=== PATIENT | female | born 1975 | race Caucasian/White ===

== ENCOUNTER 2016-09-19 09:22 | Inpatient (IN) ==
[2016-09-19] MEDS ORDERED: ZOFRAN IV ONE (09:36)
[2016-09-19] MEDS ORDERED: NS 1,000 ML IV ONE (09:36)
[2016-09-19] MEDS ORDERED: MORPHINE IV ONE (09:36)
[2016-09-19 10:15] LABS: URINE CULTURE NEEDED? NO; URINE MICRO REVIEW NEEDED? NO; URINE SOURCE CLEAN CATCH
[2016-09-19 10:25] LABS: BILIRUBIN URINE NEGATIVE (NEGATIVE); BLOOD URINE MODERATE (NEGATIVE); COLOR YELLOW; GLUCOSE URINE NEGATIVE (NEGATIVE); LEUKOCYTES URINE NEGATIVE (NEGATIVE); NITRITE URINE NEGATIVE (NEGATIVE); PH URINE 5.5; PROTEIN URINE NEGATIVE (NEGATIVE); TURBIDITY URINE CLEAR (CLEAR); UROBILINOGEN URINE NORMAL (NORMAL)
[2016-09-19 10:27] LABS: UR EPITHELIAL CELLS <10 /HPF (<10); URINE BACTERIA 1+ /HPF; URINE WBC <10 /HPF (<10)
[2016-09-19 10:31] LABS: PROTIME 10.5 Seconds (9.2-11.7); PTT 26.2 Seconds (22.0-36.0)
[2016-09-19 10:36] LABS: BASO% 0.1 % (0.0-0.8); EOS# 0.03 X1000 (0.0-0.7); EOS% 0.2 % (0.0-10.0); HEMATOCRIT 35.3 % (37.0-47.0); HEMOGLOBIN 11.6 g/dL (12.0-16.0); IMM GRAN# 0.03 X1000 (0.0-0.04); IMM GRAN% 0.2 % (0.0-0.5); LYMPH# 1.18 X1000 (1.2-3.4); LYMPH% 8.1 % (20.5-51.1); MCH 29.5 PG (27-31); MCHC 32.9 g/dL (33-37); MCV 89.8 FL (81-99); MONO# 0.86 X1000 (0.11-0.59); MONO% 5.9 % (1.7-9.3); MPV 9.5 FL (7.4-10.4); NEUT% 85.5 % (42.2-75.2); PLT 293 X1000 (130-400); RBC 3.93 XMIL (4.2-5.4)
[2016-09-19 10:41] LABS: AGAP 13; ALBUMIN 4.9 g/dL (3.5-5.0); ALKALINE PHOSPHATASE 69 U/L (32-104); BUN 9 mg/dL (8-22); CALCIUM 9.8 mg/dL (8.8-10.2); CHLORIDE 102 mmol/L (98-107); COSMO 275; GOT 14 U/L (10-30); GPT 11 U/L (10-36); LIPASE 26 U/L (13-60); POTASSIUM 3.9 mmol/L (3.5-5.1); SODIUM 138 mmol/L (136-145); TCO2 23 mmol/L (25-35); TOTAL BILIRUBIN 0.58 mg/dL (0.20-1.00); TOTAL PROTEIN 7.4 g/dL (6.3-8.3)
[2016-09-19 11:14] LABS: MANUAL DIFF NEEDED? NO
--- NOTE | 2016-09-19 11:16 | Diag Imaging Result Doc PS360 ---
EXAM: CT ABDOMEN AND PELVIS WITH CONTRAST HISTORY: Right lower quadrant pain, leukocytosis, umbilical pain TECHNIQUE: CT abdomen and pelvis with contrast. Dose reduction protocol. COMPARISON: None. FINDINGS: Normal gallbladder, spleen, pancreas, and adrenal glands. No focal hepatic abnormality. Questionable mild fatty infiltration. Normal enhancement of the kidneys. No hydronephrosis. Normal aorta. No bowel obstruction. No inflammation about the cecum. No abscess. The urinary bladder is distended and appears normal. There is a contraceptive device in good position within the uterus. A 4.1 cm cyst arises from the left ovary. No free fluid within the pelvis. There are small scattered mesenteric nodes. IMPRESSION: There is a 4.1 cm left ovarian cyst. Electronically signed by Pato Cherry 09/19/2016 11:12 AM
[2016-09-19] MEDS ORDERED: ZOSYN 3.375 GM/NS 3.375 GM/50 ML IVPB IV ONE (12:02)
[2016-09-19] MEDS ORDERED: NS 1,000 ML IV SCH (12:02)
[2016-09-19] MEDS ORDERED: ZOFRAN IV PRN (12:02)
--- NOTE | 2016-09-19 13:18 | PROVIDER DOCUMENTATION ---
This chart was entered by Coty Dahl Scribe, acting as scribe for Jose Gloria PA. HPI-Abdominal Pain/GI Problem - General Chief Complaint: Abdominal Pain Stated Complaint: ABD PAIN Time Seen by Provider: 09/19/16 09:30 Source: patient Allergies/Adverse Reactions: Patient Allergies Allergy/AdvReac Type Severity Reaction Status Date / Time Sulfa (Sulfonamide Allergy HIVES Verified 09/19/16 10:59 Antibiotics) Home Medications: Home Medication List Medication Instructions Recorded Confirmed Last Taken Type Sumatriptan [Imitrex] 50 mg PO PRN PRN 07/30/16 07/30/16 08/22/16 History - History of Present Illness-ABD Nature of Presenting Problems: Pt is a 41 year old female who came to the ED with a cc of umbilical pain and RLQ pain starting at 3am this morning. Pt reports she was nauseous from the pain but did not vomit. Abdominal Pain Onset Location: reports: other (umbilical) Pain Radiation: reports: RLQ Quality of Pain: reports: sharp Onset/Duration: reports: this morning Timing: reports: still present Activities at Onset: reports: none Modifying Factors: improves with: nothing Associated Symptoms: reports: nausea. denies: vomiting Last BM: unsure Dark Stools Present?: reports: none noticed Rectal Bleeding: reports: none Rectal Pain: reports: none Bruising or Bleeding Gums?: No Similar Symptoms Previously?: No Recently seen or treated by another doctor?: No Review of Systems - Adult - REVIEW OF SYSTEMS - ADULT Constitutional: denies: chills, fever Eyes: reports: no symptoms reported Ears, Nose, Mouth & Throat: denies: ear pain, throat pain Cardiovascular: reports: no symptoms reported Respiratory: denies: cough, wheezing Gastrointestinal: reports: abdominal pain, nausea. denies: difficulty swallowing, frequent heartburn, vomiting Genitourinary: reports: no symptoms reported Musculoskeletal: reports: no symptoms reported Integumentary: reports: no symptoms reported Neurological: reports: no symptoms reported Psychiatric: reports: no symptoms reported Endocrine: reports: no symptoms reported Hematologic/Lymphatic: reports: no symptoms reported Allergic/Immunologic: reports: no symptoms reported All Other Systems: Reviewed and Negative Past History - Adult - PAST MEDICAL HISTORY-ADULT Review of Records: reports: Old Records Reviewed, Nursing Assessment Review Major Childhood Illnesses: reports: denies history Cardiovascular: reports: denies history Respiratory: reports: denies history Gastrointestinal: reports: denies history Obstetrical/Gynecological: reports: denies history Genitourinary: reports: denies history Musculoskeletal: reports: denies history Neurological: reports: denies history Endocrine/Immune: reports: denies history Other Conditions: reports: denies history - IMMUNIZATION STATUS Childhood Immunizations: See Nurse Assessment Flu Vaccine: See Nurse Assessment - FAMILY HISTORY Family History: reviewed, not pertinent Physical Exam-General - PHYSICAL EXAM-ADULT Initial Vital Signs Reviewed: Yes - CONSTITUTIONAL General Appearance: appears well, alert, no apparent distress - EYES Eyes: PERRL/EOMI, pink conjunctivae - HEAD, EARS, NOSE, MOUTH & THROAT HENMT: normocephalic/atraumatic, moist mucous membranes, normal ENT inspection - NECK Neck: supple, normal inspection - RESPIRATORY Respiratory: chest non-tender, lungs clear, normal breath sounds - CARDIOVASCULAR Cardiovascular: normal peripheral pulses, regular rate, rhythm - GASTROINTESTINAL (ABDOMEN) Abdominal Exam: normal bowel sounds, tenderness (umbilical to RLQ). negative: McBurney's point tenderness, Martins's sign, psoas - LYMPHATIC Lymphatic: no adenopathy - MUSCULOSKELETAL Back Exam: normal inspection, no CVA tenderness, no vertebral tenderness Extremity: normal range of motion, non-tender - SKIN Integumentary: normal color, normal turgor, warm/dry - NEUROLOGIC Neurologic: grossly normal, no motor/sensory deficits - PSYCHIATRIC Psych/Mental Status: normal mood/affect, normal thought content, normal thought process, oriented x 3 Progress - PLAN OF CARE/RESULTS Progress/Plan/Lab Results: Vital Signs - 8 hr 09/19/16 09:25 Temperature 98.2 F Pulse Rate 60 Respiratory Rate 16 Blood Pressure 131/63 O2 Sat by Pulse Oximetry 100 Bedside Urine ED: Urine Bedside Start: 09/19/16 09:30 Freq: ORDERED Status: Active Activity Type Activity Date Activity User E-Sign Co-Sign Detail Recorded Client Recorded Date Recorded By Document 09/19/16 09:30 [id number] 09/19/16 10:12 [id number] 09/19/16 09:30 Point of Care [Bedside Point of Care] -Lot # [id number] - Results Negative -Control Line Visible? Yes Laboratory Results - last 24 hr 09/19/16 09/19/16 09/19/16 09:30 10:00 10:00 WBC 14.49 H RBC 3.93 L Hgb 11.6 L Hct 35.3 L MCV 89.8 MCH 29.5 MCHC 32.9 L RDW Std Deviation 12.3 Plt Count 293 MPV 9.5 Immature Gran % (Auto) 0.2 Neut % (Auto) 85.5 H Lymph % (Auto) 8.1 L [place] % (Auto) 5.9 Eos % (Auto) 0.2 Baso % (Auto) 0.1 Immature Gran # (Auto) 0.03 Neut # (Auto) 12.38 H Lymph # (Auto) 1.18 L [place] # (Auto) 0.86 H Eos # (Auto) 0.03 Baso # (Auto) 0.01 PT 10.5 INR 1.00 PTT (Actin FS) 26.2 Sodium Potassium Chloride Carbon Dioxide Anion Gap BUN Creatinine Estimated GFR/1.73 m2 BUN/Creatinine Ratio Glucose Calculated Osmolality Calcium Total Bilirubin AST ALT Alkaline Phosphatase Total Protein Albumin Globulin Albumin/Globulin Ratio Lipase Urine Source CLEAN CATCH Urine Color YELLOW Urine Turbidity CLEAR Urine pH 5.5 Ur Specific [place] 1.020 Urine Protein NEGATIVE Ur Glucose (Stick) NEGATIVE Ur Ketones (Stick) NEGATIVE Urine Blood MODERATE A Urine Nitrite NEGATIVE Urine Bilirubin NEGATIVE Urobilinogen Dipstick NORMAL Urine Leukocytes NEGATIVE Urine WBC (Auto) <10 Urine RBC (Auto) 10-20 A U Epithel Cells (Auto) <10 Urine Bacteria (Auto) 1+ 09/19/16 10:00 WBC RBC Hgb Hct MCV MCH MCHC RDW Std Deviation Plt Count MPV Immature Gran % (Auto) Neut % (Auto) Lymph % (Auto) [place] % (Auto) Eos % (Auto) Baso % (Auto) Immature Gran # (Auto) Neut # (Auto) Lymph # (Auto) [place] # (Auto) Eos # (Auto) Baso # (Auto) PT INR PTT (Actin FS) Sodium 138 Potassium 3.9 Chloride 102 Carbon Dioxide 23 L Anion Gap 13 BUN 9 Creatinine 0.7 Estimated GFR/1.73 m2 > 60 BUN/Creatinine Ratio 13 Glucose 108 H Calculated Osmolality 275 Calcium 9.8 Total Bilirubin 0.58 AST 14 ALT 11 Alkaline Phosphatase 69 Total Protein 7.4 Albumin 4.9 Globulin 2.5 Albumin/Globulin Ratio 2.0 Lipase 26 Urine Source Urine Color Urine Turbidity Urine pH Ur Specific [place] Urine Protein Ur Glucose (Stick) Ur Ketones (Stick) Urine Blood Urine Nitrite Urine Bilirubin Urobilinogen Dipstick Urine Leukocytes Urine WBC (Auto) Urine RBC (Auto) U Epithel Cells (Auto) Urine Bacteria (Auto) Orders Category Date Time Status ED: Urine Bedside ORDERED Care 09/19/16 09:30 Active Saline Loc NOW Care 09/19/16 09:[address] ABD/PELVIS W/ IV CONT ONLY [CT] Stat Exams 09/19/16 10:37 Ordered CBC WITH ELECTRONIC DIFF [HEME] Stat Lab 09/19/16 10:00 Results COMPREHENSIVE METABOLIC PANEL [CHEM] Stat Lab 09/19/16 10:00 Completed LIPASE [CHEM] Stat Lab 09/19/16 10:00 Completed PROTIME WITH INR [COAG] Stat Lab 09/19/16 10:00 Completed PTT [COAG] Stat Lab 09/19/16 10:00 Completed TYPE & SCREEN [BBK] Stat Lab 09/19/16 10:00 Received URINALYSIS W/POSS RFLX CULT-1 [URINALYSIS] Stat Lab 09/19/16 09:30 Completed 0.9% Sodium Chloride Inj [Ns] 1,000 ml Med 09/19/16 09:36 Discontinued IV 999 mls/hr Morphine Med 09/19/16 09:36 Discontinued 4 mg IV NOW ONE Ondansetron [Zofran] Med 09/19/16 09:36 Discontinued 4 mg IV NOW ONE Result Diagrams: 09/19/16 10:00 09/19/16 10:00 - CONSULTS/PCP/HOSPITALIST Notification #1 *Consult/PCP/Hospitalist*: Dr. Willis Time Discussed: 11:41 Consult Disposition: Will see in ED #2 Consult: Dr. Willis Time Discussed: 12:20 Consult Disposition: Admit Departure - Departure Date of Disposition Decision: 09/19/16 Time of Disposition Decision: 12:25 DIAGNOSIS: Acute appendicitis Qualifiers: Acute appendicitis type: unspecified acute appendicitis type Qualified Code(s) : K35.80 - Unspecified acute appendicitis Disposition: ADMITTED INPATIENT 09 Certified Medical Emergency: Emergent Condition: Stable - Critical Care Note This patient required my direct & personal management of CC.: No Attestation - Physician/ CLAUDINE Attestation Patient care was provided by Advanced Practice Provider:: Yes Advanced Practice Provider:: Jose Gloria Advanced Practice Provider documentation review:: The Mid-level provider documentation, treatment plan and medical decision making was reviewed by the physician who agrees with all treatment and medical decision making by the MLP. The physician spent face to face time with patient:: Yes Advanced Practice Provider documentation review:: Supervising physician onsite and consulted in the evaluation and care of this patient. The physician did have a face to face encounter with the patient. This chart was documented by the indicated scribe, (Coty Dahl Scribe) and accurately reflects the services I performed and decisions made by me, Jose Gloria PA, as attested by the provider's signature.
--- NOTE | 2016-09-19 14:42 | HISTORY AND PHYSICAL ---
DATE OF ADMISSION: 09/19/2016 HISTORY OF PRESENT ILLNESS: This is a 41-year-old female, who works in [employer], who presented with acute onset of abdominal pain this morning at 3 a.m. that woke her from bed. She was doubled over and has had anorexia since prompting emergency room visit. Initially it started periumbilical and has improved slightly, but is now localized more to the right lower quadrant. Denies any fevers, changes to her bowel movements, was in her usual state of health during the day yesterday. She had a CT scan in the emergency department after she was found to have leukocytosis, but did show dilated appendix in the right lower quadrant, but no signs of perforation or stranding. MEDICAL HISTORY: Migraines. SURGICAL HISTORY: She has Mirena in place. SOCIAL HISTORY: No tobacco, alcohol, or drugs. 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 FAMILY HISTORY: Negative for cancer. REVIEW OF SYSTEMS: Ten point negative except for what is mentioned in the HPI. PHYSICAL EXAM: Vital signs: Temperature is 98.2 degrees, pulse 60, blood pressure 131/63, oxygen saturation 100% on room air. General: She is alert, in no acute distress. HEENT: There is no scleral icterus. No cervical masses. Cardiovascular: Normal rate, regular rhythm. Pulmonary: No increased work of breathing. She is on room air. Abdomen: Soft. She has tenderness focally in the right lower quadrant. There is no left lower quadrant tenderness. I do not see any rebound or obvious peritonitis here. Integument: Warm and dry without jaundice. Musculoskeletal: Has normal muscle tone without atrophy in all locations. I do not see any rashes. Neurological: She is alert, oriented without any focal deficits. Lymphovascular exam: Her lower extremities are well perfused without edema. Lymph node exam: I do not feel any cervical or inguinal adenopathy. LABS: White count is 14, hematocrit 35, platelets are 293. INR is 1.0. Glucose is 108, creatinine 0.7. LFTs are normal. Urinalysis has moderate blood, but is otherwise negative. X-RAYS: CT scan of the abdomen and pelvis shows possible distended appendix measuring 9 mm adjacent to the right iliac artery and vein and a 4.1 cm left ovarian cyst. ASSESSMENT AND PLAN: This is a 41-year-old female with a classic history for appendicitis on exam consistent with CT scan that does suggest a dilated fluid-filled appendix. I do not see a lot of inflammation, no signs of perforation. She also has a left ovarian cyst, but all of her symptoms are on the right side without any left-sided pain. Upon discussion with the patient of risks, benefits, alternatives including bleeding, infection, possible abscess formation, especially if this is found to be perforated and the possibility that this is not appendicitis, if she consents to appendectomy we will make her nothing by mouth, give her intravenous Zosyn now, we plan to go to the operating room for laparoscopic appendectomy this afternoon. Otherwise we will admit to my service. cc: Joseph Willis MD
[2016-09-19] MEDS: MORPHINE IV PRN ×2 (15:19→20:54)
[2016-09-19] MEDS ORDERED: ZEMURON ONE (15:26)
[2016-09-19] MEDS ORDERED: XYLOCAINE-MPF 2% ONE (15:26)
[2016-09-19] MEDS ORDERED: DIPRIVAN 1% ONE (15:28)
[2016-09-19] MEDS ORDERED: VERSED ONE (15:28)
[2016-09-19] MEDS ORDERED: FENTANYL ONE (15:28)
[2016-09-19] MEDS ORDERED: QUELICIN (DOSE) ONE (15:29)
[2016-09-19] MEDS ORDERED: MARCAINE 0.25% PF ONE (16:48)
[2016-09-19] MEDS ORDERED: XYLOCAINE 1%/EPI 1:100,000 ONE (16:48)
[2016-09-19] MEDS ORDERED: LR 1,000 ML ONE ×2 (16:49→18:36)
[2016-09-19] MEDS ORDERED: DECADRON ONE (17:03)
[2016-09-19] MEDS ORDERED: ZOFRAN ONE (17:03)
[2016-09-19] MEDS ORDERED: ROBINUL ONE (17:19)
[2016-09-19] MEDS ORDERED: NEOSTIGMINE ONE (17:20)
--- NOTE | 2016-09-19 18:12 | OPERATIVE NOTE ---
PROCEDURE DATE: 09/19/2016 PREOPERATIVE DIAGNOSES: 1. Acute appendicitis. 2. Left ovarian cyst. POSTOPERATIVE DIAGNOSES: 1. Acute appendicitis. 2. Left ovarian cyst. PROCEDURE PERFORMED: Laparoscopic appendectomy. COMPLICATIONS: None. ESTIMATED BLOOD LOSS: 5 mL. SPECIMENS: Appendix. ANESTHESIA: General. INDICATIONS: 41-year-old female with acute onset of abdominal pain, periumbilical in nature radiating to the right lower quadrant today with a leukocytosis and CT scan suggesting acute appendicitis. OPERATIVE FINDINGS: There was a dilated, inflamed appendix with no evidence of perforation, very thickened palm. There is a simple appearing left ovarian cyst with clear fluid within it and no solid components. No adhesions surrounding. Otherwise normal adnexal structures and uterus. The gallbladder was normal. Liver surface was normal. OPERATIVE NOTE: Risks, benefits, alternatives discussed with the patient, she consented to the procedure. She was seen preoperatively and surgery to be performed was confirmed. She was taken to the operating room, placed in the supine position. General anesthesia induced without complication. All bony prominence were padded. The arms were tucked. Aldridge catheter was placed. Abdomen prepped with chlorhexidine solution and draped in the usual fashion. After time-out was performed, periumbilical block was made with local anesthetic. A curvilinear infraumbilical incision was carried down to the level of the fascia. The fascia was elevated at the umbilical stalk with a Shiraz clamp and incision along the midline was made and the abdomen was entered in an open controlled fashion. A 12 mm Winston trocar was placed under direct visualization. The abdomen was insufflated to 15 mmHg. We then placed a trocar in the suprapubic location after inspecting the abdomen and placing her in Trendelenburg position left side down from above the level of the bladder. This trocar was placed after infiltration of local anesthetic and then in the left lower quadrant, we placed a trocar lateral to the inferior epigastric vessels. We were able to easily identify the appendix, grasped this and this retracted cephalad using a LigaSure device. Took the mesoappendix down to the base. Using a 30 mm gold load stapler we divided the appendix in its entirety from the base of the cecum protecting the terminal ileum. There is good closure here. We then inspected the abdomen. We looked at the left ovarian cysts and it is very simple in appearance and as such, we elected to leave this. We irrigated the abdomen and confirmed hemostasis. There is no purulence or evidence of perforation. We removed the trocars under direct visualization, desufflated the abdomen, brought the appendix out through the umbilical incision, closed the fascia with interrupted 0 Vicryl sutures. Skin was closed with 4-0 subcuticular Monocryl. Dermabond was applied for dressing. Aldridge was removed. At the end of the case, counts were correct x2. She tolerated the procedure well and transferred to PACU. I spoke with the family. cc: Joseph Willis MD
[2016-09-19] MEDS ORDERED: DEMEROL ONE (18:24)
[2016-09-19] MEDS ORDERED: LR 1,000 ML IV SCH (18:43)
[2016-09-19] MEDS: PERIDEX MT SCH (22:33)
[2016-09-19] MEDS: NORCO-7.5 PO PRN (23:13)
[2016-09-20] MEDS: NORCO-7.5 PO PRN ×2 (04:50→10:21)
[2016-09-20 07:25] VITALS: BP 99/53
[2016-09-20] MEDS: PERIDEX MT SCH (08:22)
== END 2016-09-20 12:30 | disposition home or self-care (01) ==
LOC: ED 09:22 → 4N 12:25
PROVIDERS: ADMIT Surgery; ATTEND Surgery